=== PATIENT | male | born 1950 | race Caucasian/White ===

== ENCOUNTER 2019-05-26 19:13 | Emergency (ER) | payer OTHER, SELFPAY ==
[2019-05-26 19:26] VITALS: BP 193/105; PULSE 103; RESP 20; TEMP 37.3; O2SAT 99
--- NOTE | 2019-05-26 19:35 | ED.GENADULT ---
HPI - General Adult General Chief complaint: Unspecified Stated complaint: HPB Time Seen by Provider: 05/26/19 19:35 Source: patient and RN notes reviewed Mode of arrival: ambulatory Limitations: no limitations History of Present Illness HPI narrative: 69-year-old male presents with concern for high blood pressure. Reports he has a diagnosis of hypertension and is treated with lisinopril. Reports on Saturday he noticed his blood pressure was high on his home monitor, he called his doctor who instructed him to take a second dose of lisinopril. Reports over the weekend symptoms seem to improve, reports drinking alcohol on Saturday. Reports on Saturday his blood pressure was high again. Reports today he took a second dose of lisinopril. Reports intermittent wooziness . Denies headache, chest pain, shortness of breath, syncope, near syncope, weakness, nausea, vomiting, diarrhea, general malaise. MD complaint: High blood pressure Related Data Home Medications Medication Instructions Recorded Confirmed atorvastatin 40 mg PO DAILY 05/26/19 05/26/19 lisinopril-hydrochlorothiazide 1 tablet PO DAILY 05/26/19 05/26/19 lorazepam [Ativan] 0.5 mg PO DAILY PRN 05/26/19 05/26/19 metformin 500 mg PO BID 05/26/19 05/26/19 zolpidem 10 mg PO DAILY PRN 05/26/19 05/26/19 Allergies Allergy/AdvReac Type Severity Reaction Status Date / Time No Known Allergies Allergy Mild Verified 05/26/19 19:34 Review of Systems Review of Systems: Narrative: CONSTITUTIONAL: Denies malaise, chills, sweats, or fever. EYES: Denies visual changes, redness, or discharge. ENT: Denies rhinorrhea, congestion, sinus pain, otalgia or sore throat. CARDIOVASCULAR: Denies chest pain, palpitations, or edema. RESPIRATORY: Denies cough or dyspnea. GASTROINTESTINAL: Denies abdominal pain, nausea, vomiting, diarrhea, bloody, or mucous stools. GENITOURINARY: Denies dysuria or hematuria. SKIN: Denies rash or itching. MUSCULOSKELETAL: Denies back pain, joint pain, or myalgia. NEUROLOGIC: Denies numbness, weakness, or headache, syncope, near syncope. Reports wooziness All systems reviewed & are unremarkable except as noted in HPI and below PMFSH Comments At time of signature, agree with nursing past medical, surgical, social and family history. There is no relevant family history pertinent to the presenting complaint Exam Narrative: Exam Narrative: GENERAL: Well-appearing, well-nourished, and in no acute distress. HEAD: Normocephalic, atraumatic. EYES: PERRLA, conjunctivae clear, and EOMI. No nystagmus. ENT: Nares clear, turbinates pink, no rhinorrhea or epistaxis. Mucous membranes moist. Right TM pearly oliva with sharp light reflex left TM not visible due to cerumen; no tragal tenderness. Oropharynx without erythema or lesions. Tonsils not enlarged and without exudate. NECK: Supple. No lymphadenopathy. No jugular venous distension, or carotid bruits. Carotids were easily palpable bilaterally. CHEST: No respiratory distress. Clear to auscultation. No bony deformities, no asymmetry. Speaks in full sentences. HEART: Regular rate and rhythm. No murmur heard. Normal peripheral pulses. Normal capillary refill. Skin [place], warm, dry EXTREMITIES: Normal range of motion. No edema. Normal strength and sensation. SKIN: Warm, dry, no rash. NEURO: Alert and oriented x3. No focal deficits. Cranial nerves II through XII grossly intact PSYCH: Normal mood and affect Course Course Emergency Course: Discussed with patient limited diagnostic availability at the [facility], EKG findings. Discussed transfer to emergency department for further evaluation. Patient reports he has an appointment with his primary care provider in the morning and can wait 12 hours . Patient was given reasons to go to the emergency room should symptoms change or worsen. Patient and his is aware of, understands and agrees to treatment plan. Anticipatory guidance given. Patient agrees to follow-up as directed and is aw
[2019-05-26 19:39] LABS: Glucose Point of Care 161 (65-105)
--- NOTE | 2019-05-26 19:39 | ECG_ITS ---
Measurements Intervals [place] Rate: 70 P: 47 MT: 160 QRS: -26 QRSD: 109 T: 68 QT: 401 QTc: 433 Interpretive Statements SINUS RHYTHM BORDERLINE T WAVE ABNORMALITY- LATERAL LEADS BASELINE ARTIFACT- II, III, AVF BORDERLINE ECG Electronically Signed On 05-27-2019 11:38:08 [employer] by Trevor Hendricks D.O.
[2019-05-26 19:54] VITALS: BP 161/88; PULSE 75; RESP 20; TEMP 36.9; O2SAT 99
== END 2019-05-26 20:04 | disposition home or self-care (01) ==
PROVIDERS: Emergency Provider Nurse Practitioner; PCP Internal Medicine
DX: I10 Essential (primary) hypertension (principal); M10.9 Gout, unspecified; E11.9 Type 2 diabetes mellitus without complications; F41.9 Anxiety disorder, unspecified
CPT/HCPCS: 82948; 87804; 93005; 99203; G0463